=== PATIENT | female | born 1955 | race Caucasian/White ===

== ENCOUNTER 2016-12-09 10:00 | Emergency (ER) | payer OTHER ==
[2016-12-09 11:31] LABS: Hematocrit 39 % (35-47); Hemoglobin 13.3 g/dl (12.0-16.0); Mean Corpuscular HGB Conc 34 g/dl (31-36); Mean Corpuscular Hemoglobin 31 pg (27-31); Mean Corpuscular Volume 92 fL (80-97); Mean Platelet Volume 7 um3 (7.4-10.4); Red Blood Count 4.25 10^6/ul (4.0-5.4); Red Cell Distribution Width 13 % (10.5-15); White Blood Count 9.6 10^3/ul (3.5-10.8)
[2016-12-09 11:47] LABS: ALT 22 U/L (7-52); AST 31 U/L (13-39); Albumin 4.3 g/dL (3.2-5.2); Alkaline Phosphatase 49 U/L (34-104); Anion Gap 5 mmol/L (2-11); BUN/Creatinine Ratio 21.6 (8-20); Blood Urea Nitrogen 16 mg/dL (6-24); C Reactive Protein < 1.00 mg/L (< 5.00); CO2 Carbon Dioxide 28 mmol/L (22-32); Calcium 9.5 mg/dL (8.6-10.3); Chloride 102 mmol/L (101-111); EGFR African American 103.3 (>60); EGFR Non-African American 80.3 (>60); Globulin 2.8 g/dL (2-4); Glucose 123 mg/dL (70-100); Lipase 45 U/L (11.0-82.0); Potassium 4.1 mmol/L (3.5-5.0); Sodium 135 mmol/L (133-145); Total Protein 7.1 g/dL (6.4-8.9)
--- NOTE | 2016-12-09 12:32 | ED ---
Darek Olvera Alfonso, scribed for George Carrillo MD on 12/09/16 at 1048 . Abdominal Pain/Female - HPI Summary HPI Summary: This patient is a 61 year old F presenting to [facility] accompanied by with a chief complaint of abdominal pain since 0230 today. The CC is described as gripping pain that was like child . The patient rates the pain 1/10 in severity. Symptoms aggravated by lying down. Symptoms alleviated by standing , vomiting, and BM. Patient reports vomiting, and constipation. Patient denies nausea, and urinary symptoms. PMHx includes hypothyroidism. - History of Current Complaint Chief Complaint: EDAbdPain Stated Complaint: ABD PAIN Time Seen by Provider: 12/09/16 10:16 Hx Obtained From: Patient Onset/Duration: Sudden Onset, Lasting Hours - 0230 this morning, Still Present Timing: Constant Severity Initially: Moderate Severity Currently: Moderate Pain Intensity: 1 Pain Scale Used: 0-10 Numeric Character: Other: - gripping pain that was like child . Aggravating Factor(s): Other: - Lying down Alleviating Factor(s): Other: - standing, vomiting, and BM Associated Signs and Symptoms: Positive: Other: - vomiting, and constipation. Patient denies nausea, and urinary symptoms. Allergies/Adverse Reactions: Allergies Allergy/AdvReac Type Severity Reaction Status Date / Time No Known Allergies Allergy Verified 12/09/16 10:17 PMH/Surg Hx/FS Hx/Imm Hx Endocrine/Hematology History: Reports: Hx Thyroid Disease - hypo Sensory History: Denies: Hx Deafness Opthamlomology History: Denies: Hx Legally Blind Infectious Disease History: No Infectious Disease History: Denies: Traveled Outside the [place] in Last 30 Days - Family History Known Family History: Positive: Cardiac Disease, Hypertension Negative: Diabetes - Social History Alcohol Use: Rare Substance Use Type: Reports: None Smoking Status (MU): Never Smoked Tobacco Review of Systems Negative: Fever Positive: Abdominal Pain, Vomiting, Other - Constipation. Negative: Nausea Positive: no symptoms reported All Other Systems Reviewed And Are Negative: Yes Physical Exam Triage Information Reviewed: Yes Vital Signs On Initial Exam: Initial Vitals Temp Pulse Resp BP Pulse Ox 97.6 F 95 18 152/82 99 12/09/16 10:01 12/09/16 10:01 12/09/16 10:01 12/09/16 10:01 12/09/16 10:01 Vital Signs Reviewed: Yes Appearance: Positive: Well-Appearing, No Pain Distress Skin: Positive: Warm, Skin Color Reflects Adequate Perfusion, Dry Head/Face: Positive: Normal Head/Face Inspection Eyes: Positive: Normal ENT: Positive: Normal ENT inspection Neck: Positive: Supple, Nontender Respiratory/Lung Sounds: Positive: Clear to Auscultation, Breath Sounds Present Cardiovascular: Positive: RRR Abdomen Description: Positive: Soft, Other: - Mild periumbilical tenderness Bowel Sounds: Positive: Present Musculoskeletal: Positive: Normal Neurological: Positive: Normal, Sensory/Motor Intact, Alert, Oriented to Person Place, Time, CN Intact II-III Psychiatric: Positive: Affect/Mood Appropriate - Amita Coma Scale Coma Scale Total: 15 Diagnostics - Vital Signs Vital Signs Temp Pulse Resp BP Pulse Ox 12/09/16 10:13 97.6 F 95 14 152/82 98 12/09/16 10:01 97.6 F 95 18 152/82 99 - Laboratory Lab Results: Lab Results 12/09/16 12/09/16 12/09/16 Range/Units 11:18 11:18 11:18 WBC 9.6 (3.5-10.8) 10^3/ul RBC 4.25 (4.0-5.4) 10^6/ul Hgb 13.3 (12.0-16.0) g/dl Hct 39 (35-47) % MCV 92 (80-97) fL MCH 31 (27-31) pg MCHC 34 (31-36) g/dl RDW 13 (10.5-15) % Plt Count 243 (150-450) 10^3/ul MPV 7 L (7.4-10.4) um3 Neut % (Auto) 88.4 H (38-83) % Lymph % (Auto) 8.2 L (25-47) % [place] % (Auto) 3.0 (1-9) % Eos % (Auto) 0.1 (0-6) % Baso % (Auto) 0.3 (0-2) % Absolute Neuts (auto) 8.5 H (1.5-7.7) 10^3/ul Absolute Lymphs (auto) 0.8 L (1.0-4.8) 10^3/ul Absolute Monos (auto) 0.3 (0-0.8) 10^3/ul Absolute Eos (auto) 0 (0-0.6) 10^3/ul Absolute Basos (auto) 0 (0-0.2) 10^3/ul Absolute Nucleated RBC 0 10^3/ul Nucleated RBC % 0 Sodium 135 (133-145) mmol/L Potassium 4.1 (3.5-5.0) mmol/L Chloride 102 (101-111) mmol/L Carbon Dioxide 28 (22-32) mmol/L Anion Gap 5 (2-11) mmol/L BUN 16 (6-24) mg/dL Creatinine 0.74 (0.51-0.95) mg/dL Est GFR ( Amer) 103.3 (>60) Est GFR (Non-Af Amer) 80.3 (>60) BUN/Creatinine Ratio 21.6 H (8-20) Glucose 123 H (70-100) mg/dL Lactic Acid 0.8 (0.5-2.0) mmol/L Calcium 9.5 (8.6-10.3) mg/dL Total Bilirubin 0.60 (0.2-1.0) mg/dL AST 31 (13-39) U/L ALT 22 (7-52) U/L Alkaline Phosphatase 49 (34-104) U/L C-Reactive Protein < 1.00 (< 5.00) mg/L Total Protein 7.1 (6.4-8.9) g/dL Albumin 4.3 (3.2-5.2) g/dL Globulin 2.8 (2-4) g/dL Albumin/Globulin Ratio 1.5 (1-3) Lipase 45 (11.0-82.0) U/L Result Diagrams: 12/09/16 11:18 12/09/16 11:18 Lab Statement: Any lab studies that have been ordered have been reviewed, and results considered in the medical decision making process. Re-Evaluation - Re-Evaluation First Eval Re-Evaluation Time: 12:17 Change: Improved Comment: Patient reports she is feeling better and does not have abd pain at this time. Abdominal Pain Fem Course/Dx - Course Course Of Treatment: This patient is a 61 year old F presenting to [facility] accompanied by with a chief complaint of abdominal pain since 0230 today. The CC is described as gripping pain that was like child . The patient rates the pain 1/10 in severity. Symptoms aggravated by lying down. Symptoms alleviated by standing, vomiting, and BM. Patient reports vomiting, and constipation. Patient denies nausea, and urinary symptoms. PMHx includes hypothyroidism. Her labs were normal here and she had no further episode of this peristaltic-like pain. Patient will be discharged with follow up from PCP. The patient is agreeable with this plan. - Diagnoses Provider Diagnoses: Abdominal pain Discharge - Discharge Plan Condition: Stable Disposition: HOME Patient Education Materials: Acute Abdominal Pain (ED) Referrals: Meera Coyle MD [Primary Care Provider] - 3 Days The documentation as recorded by the Darek luevano Alfonso accurately reflects the service I personally performed and the decisions made by me, George Carrillo MD.
[2016-12-09 12:44] LABS: Urine Bilirubin Negative (Negative); Urine Glucose Negative (Negative); Urine Nitrite Negative (Negative)
[2016-12-09 14:01] VITALS: BP 135/65
== END 2016-12-09 12:47 | disposition home or self-care (01) ==
LOC: ED 10:00
DX: R10.9 Unspecified abdominal pain (principal); K59.00 Constipation, unspecified; R11.10 Vomiting, unspecified
CPT/HCPCS: 36415; 80053; 81003; 83605; 83690; 85025; 86140; 99282